=== PATIENT | female | born 1985 | race African-American/Black ===

== ENCOUNTER 2024-08-21 13:27 | Emergency (ER) | payer OTHER ==
--- NOTE | 2024-08-21 15:03 | RAD REPORT ---
EXAMINATION: ONE VIEW CHEST XR CLINICAL INDICATION: weakness TECHNIQUE: Frontal chest projection is submitted. Examination is limited by patient positioning and t echnique. COMPARISON: 01/21/2024 FINDINGS: The lungs are well inflated and clear. The heart is normal in size. No displaced fractures identified . IMPRESSION: No acute intrathoracic abnormalities.
[2024-08-21 15:13] LABS: Absolute Basophils 0.1 K/uL (0-0.5); Absolute Eosinophils 0.2 K/uL (0-0.5); Absolute Monocytes 0.3 K/uL (0.1-1.3); Absolute Neutrophil 3.2 K/uL (1.8-8.0); Basophils % 1.2 % (0-1.3); Eosinophils % 3.9 % (0-4.4); Hematocrit 32.3 % (36.0-45.0); Hemoglobin 10.8 g/dL (12.0-15.0); Lymphocytes % 35.4 % (15.3-44.8); MCH 29.4 pg (27.0-35.0); MCHC 33.5 g/dL (32.0-36.0); MCV 87.6 fL (80-100); MPV 7.3 fL (7.6-11.3); Monocytes % 4.7 % (3.3-12.3); Neutrophils % 54.8 % (41.7-73.7); PT Prothrombin Time 12.5 SECONDS (9.4-12.5); Platelets 247 thou/uL (152-406); Protime INR 1.12; RBC Red Blood Cell Count 3.68 M/uL (3.86-4.86); Red Cell Distribution Width 13.8 % (12.1-15.2)
[2024-08-21 15:36] LABS: ALT/SGPT 26 U/L (13-56); Albumin 3.5 g/dL (3.4-5.0); Albumin/Globulin Ratio 0.9 (1.1-1.8); Alkaline Phosphatase 56 U/L (45-117); Anion Gap 7.7 mEq/L (5.0-15.0); BUN Blood Urea Nitrogen 7 mg/dL (7-18); Bicarbonate 29 mEq/L (21-32); Bilirubin Total 0.3 mg/dL (0.2-1.0); Globulin 3.7 g/dL (2.3-3.5); Glomerular Filtration Rate 93 ml/min (=/>90); Glucose Level 113 mg/dL (74-106); Protein, Total 7.2 g/dL (6.4-8.2); Sodium Level 139 mEq/L (136-145); T4,Total 6.6 ug/dL (4.8-13.9); Troponin High Sensitivity 3.4 pg/mL (<58.9)
[2024-08-21 15:38] LABS: AST/SGOT 20 U/L (15-37); Bilirubin Direct < 0.2 mg/dL (0-0.2); Bilirubin Indirect, Calculated 0.1 mg/dL (0.2-0.8); Magnesium 1.3 mg/dL (1.6-2.4); Potassium 3.7 mEq/L (3.5-5.1)
[2024-08-21 16:04] LABS: Specific Gravity 1.022 (1.005-1.030)
--- NOTE | 2024-08-21 16:46 | RAD REPORT ---
EXAM: CT brain without contrast HISTORY: DIZZINESS COMPARISON: None TECHNIQUE: Multiple contiguous axial images were obtained and a CT of the brain without contrast. Sag ittal and coronal reformats were performed. One or more of the following dose reduction techniques were used: Automated exposure control, adjust ment of the mA and/or kV according to patient size, and/or iterative reconstruction. FINDINGS: No evidence of hydrocephalus, intracranial hemorrhage, or extra-axial fluid collection. The brain is normal in morphology. No evidence of midline shift or areas of brain edema. The calvarium is intact. The visualized paranasal sinuses and mastoid air cells are essentially clear . IMPRESSION: No evidence of acute intracranial abnormality. EXAM: CT of the cervical spine without contrast HISTORY: Neck dustin, injury [facility] Y DIZZINESS Bed Name: [id number] COMPARISON: None TECHNIQUE: Multiple contiguous axial images were obtained in a CT of the cervical spine without contr ast. Sagittal and coronal reformats were performed. FINDINGS: The vertebral bodies demonstrate normal height and alignment. No evidence of acute fracture or subluxation.. Moderate lower cervical degenerative changes. No prevertebral soft tissue swelling is seen. The posterior facets are well aligned. Normal alignment of the skull base with the cervical spine is seen. The lung apices are unremarkable. IMPRESSION: No evidence of acute osseous abnormality of the cervical spine.
--- NOTE | 2024-08-21 16:47 | RAD REPORT ---
EXAMINATION: CT LUMBAR SPINE WITHOUT CONTRAST CLINICAL INDICATION: Female, 39 years old. PAIN TECHNIQUE: Axial CT images were obtained through the lumbar spine in soft tissue and bone windows wit hout intravenous contrast. Coronal and Sagittal reformatted images were created from the data set. One or more of the following dose reduction techniques were used: Automated exposure control, adjustm ent of the mA and/ or kV according to patient size, and/or iterative reconstruction. Unless otherwise specified, incidental findings do not require dedicated imaging follow-up. COMPARISON: No prior exam. FINDINGS: For purposes of this dictation, it is assumed that there are 5 non rib-bearing lumbar type vertebrae, and the most caudal fully segmented lumbar vertebra is labeled L5. ALIGNMENT: The lumbar spine demonstrates normal alignment without scoliosis or spondylolisthesis. BONES: No significant soft tissue abnormalities. No aggressive osseous lesions. DISCS: Mild posterior disc bulging lower lumbar spine. LEVELS: No significant spinal canal or neural foraminal stenosis. No visualized abnormality within th e spinal canal. SOFT TISSUE: No soft tissue abnormalities. IMPRESSION: No acute lumbar spine abnormalities. Mild lower lumbar spondylosis.
[2024-08-21] MEDS ORDERED: MAGNESIUM SULFATE 1 gm IVPB 1 GM/100 ML BAG IV ONE (17:02)
--- NOTE | 2024-08-21 17:33 | EDPHYS ---
Physician Documentation [facility] Name: Kelin Geronimo Age: 39 yrs Sex: Female : 1985 Arrival Date: 08/21/2024 Time: 13:27 Bed 8 Private MD: ED Physician Serjio Britt HPI: 08/21 14:00 This 39 yrs old Black Female presents to ER via Ambulatory with complaints of Tremor, cp Dizziness, General Weakness. 14:00 The patient's problem is reported as weakness, that is generalized, intermittent cp tremors for past couple years that have been persistent at night for last 2 days. 14:00 Associated signs and symptoms: Pertinent positives: headache, neck and low back pain, cp Pertinent negatives: abdominal pain, chest pain. Patient's baseline: Neuro: alert and fully oriented, Motor: no deficits, Ambulation: walks without assistance, Speech: normal. TENTERER: 17:47 LMP N/A - , Not ap3 Historical: - Allergies: 13:46 Codeine; cm10 13:46 SULFA SULFONAMIDE ANTIBIOTICS; cm10 - PMHx: 13:46 Anemia; Hypertensive disorder; Thyroid problem; cm10 - PSHx: 13:46 section; cm10 - Immunization history:: Adult Immunizations up to date. - Infectious Disease History:: Denies. - Social history:: Smoking status: Patient denies any tobacco usage or history of. ROS: 14:05 Constitutional: Negative for body aches, chills, fever, poor PO intake, cp 14:05 Cardiovascular: Negative for chest pain, edema, palpitations, cp 14:05 Eyes: Negative for injury, pain, redness, and discharge, cp 14:05 ENT: Negative for drainage from ear(s), ear pain, sore throat, difficulty swallowing, difficulty handling secretions, 14:05 Neck: Positive for pain at rest, 14:05 Respiratory: Positive for shortness of breath, Negative for cough, wheezing, 14:05 Abdomen/GI: Negative for abdominal pain, vomiting, diarrhea, constipation, 14:05 Back: Positive for pain at rest, 14:05 Neuro: Positive for dizziness, tremor, weakness, Negative for altered mental status, numbness, syncope, 14:05 : Negative for urinary symptoms, cp 14:05 All other systems are negative, Exam: 14:10 Constitutional: The patient appears in no acute distress, alert, awake, cp non-diaphoretic, non-toxic, well developed, well nourished, 14:10 Head/Face: Normocephalic, atraumatic. cp 14:10 Eyes: Periorbital structures: appear normal, Pupils: equal, round, and reactive to light and accomodation, Extraocular movements: intact throughout, Conjunctiva: normal, no exudate, no injection, Sclera: no appreciated abnormality, Lids and lashes: appear normal, bilaterally, 14:10 ENT: External ear(s): are unremarkable, Nose: is normal, Mouth: Lips: moist, Oral mucosa: pink and intact, moist, Posterior pharynx: is normal, airway is patent, no erythema, no exudate, 14:10 Neck: ROM/movement: pain, that is mild, with flexion, limited range of motion, is not appreciated, nuchal rigidity, is not appreciated, 14:10 Chest/axilla: Inspection: normal, 14:10 Cardiovascular: Rate: normal, Rhythm: regular, Edema: is not appreciated, JVD: is not appreciated, 14:10 Respiratory: the patient does not display signs of respiratory distress, Respirations: normal, no use of accessory muscles, no retractions, labored breathing, is not present, Breath sounds: are clear throughout, no decreased breath sounds, no stridor, no wheezing, 14:10 Abdomen/GI: Inspection: abdomen appears normal, Palpation: abdomen is soft and non-tender, in all quadrants, 14:10 Back: pain, that is mild, of the lumbar area, ROM is normal, 14:10 Skin: no rash present. 14:10 Neuro: Orientation: to person, place \T\ time. Mentation: is normal, Cerebellar function: Romberg testing is negative, Motor: moves all fours, strength is normal, Sensation: is normal, Gait: is steady, 14:52 ECG was reviewed by the Attending Physician. cp Vital Signs: 13:45 BP 152 / 107; Pulse 98; Resp 18; Temp 99.3(O); Pulse Ox 100% on R/A; Weight 99.79 kg; cm10 Height 5 ft. 9 in. ; Pain 4/10; 15:00 BP 148 / 97; Pulse 90; Resp 16; Pulse Ox 99% ; ko1 13:45 Body Mass Index 32.49 (99.79 kg, 175.26 cm) cm10 13:45 Pain Scale: Adult cm10 MDM: 13:57 Patient medically screened. cp 14:00 Differential diagnosis: metabolic disorder, drug effects, electrolyte abnormality. cp 17:32 Data reviewed: vital signs, nurses notes, lab test result(s), EKG, radiologic studies, cp CT scan, and as a result, I will discharge patient. 17:33 Counseling: I had a detailed discussion with the patient and/or guardian regarding the cp historical points, exam findings, and any diagnostic results supporting the discharge/admit diagnosis, lab results, radiology results, the need for outpatient follow up, a family practitioner, a neurologist, to return to the emergency department if symptoms worsen or persist or if there are any questions or concerns that arise at home. 08/21 13:58 Order name: Basic Metabolic Panel; Complete Time: 16:49 cp 08/21 16:49 Interpretation: Normal except: GLUC 113. cp 08/21 13:58 Order name: CBC with Diff; Complete Time: 15:24 cp 08/21 15:24 Interpretation: Normal except: RBC 3.68; HGB 10.8; HCT 32.3; MPV 7.3. cp 08/21 13:58 Order name: LFT's; Complete Time: 16:49 cp 08/21 17:06 Interpretation: Reviewed. cp 08/21 13:58 Order name: Magnesium; Complete Time: 16:49 cp 08/21 16:49 Interpretation: Reviewed. cp 08/21 13:58 Order name: PT-INR; Complete Time: 15:24 cp 08/21 13:58 Order name: Troponin HS; Complete Time: 16:49 cp 08/21 13:58 Order name: TSH; Complete Time: 16:49 cp 08/21 13:58 Order name: T3 Free; Complete Time: 16:49 cp 08/21 13:58 Order name: T4,Total; Complete Time: 16:49 cp 08/21 15:19 Order name: Test, Urine; Complete Time: 16:49 mb4 08/21 17:08 Interpretation: Reviewed. cp 08/21 15:41 Order name: T4 Free; Complete Time: 16:49 EDMS 08/21 13:58 Order name: XRAY Chest (1 view); Complete Time: 15:24 cp 08/21 14:51 Order name: CT Head C Spine; Complete Time: 16:49 cp 08/21 14:53 Order name: CT Lumbar Spine Wo Con; Complete Time: 16:49 cp 08/21 13:58 Order name: EKG; Complete Time: 13:58 cp 08/21 13:58 Order name: Cardiac monitoring; Complete Time: 14:43 cp 08/21 13:58 Order name: EKG - Nurse/Tech; Complete Time: 14:43 cp 08/21 13:58 Order name: IV Saline Lock; Complete Time: 15:00 cp 08/21 13:58 Order name: Labs collected and sent; Complete Time: 15:00 cp 08/21 13:58 Order name: O2 Per Protocol; Complete Time: 14:43 cp 08/21 13:58 Order name: O2 Sat Monitoring; Complete Time: 14:43 cp EC:52 Rate is 86 beats/min. Rhythm is regular. MS interval is normal. QRS interval is normal. cp QT interval is normal. T waves are Inverted in lead aVR. Interpreted by me. Reviewed by me. Administered Medications: 17:05 Drug: Magnesium Sulfate IVPB 1 grams IVPB once over 1 hrs Route: IVPB; Infused Over: 1 ko1 hrs; Site: left antecubital; 17:47 Follow up: IV Status: Completed infusion ap3 Disposition: 08/22 17:44 Chart complete. cp Disposition Summary: 08/21/24 17:33 Discharge Ordered Notes: Location: Home cp Problem: new cp Symptoms: have improved cp Condition: Stable cp Diagnosis - Anemia, unspecified cp - Hypomagnesemia cp - Weakness cp - Dizziness and giddiness cp Followup: cp - With: Rancho Muhammad MD - When: 1 week - Reason: Recheck today's complaints Discharge Instructions: - Discharge Summary Sheet cp - Anemia cp - Dizziness cp - Hypomagnesemia cp - Weakness cp Forms: - Medication Reconciliation Form cp - Antibiotic Education cp - Prescription Opioid Use cp - Patient Portal Instructions cp - Leadership Thank You Letter cp Prescriptions: - Ferrous Sulfate 325 mg (65 mg Iron) Oral tablet - take 1 tablet ORAL route every 12 hours; 60 tablet; Refills: 0, Product cp Selection Permitted Signatures: Dispatcher [employer] EDSerjio Antonio PA PA cp Mikki Parker RN RN ko1 Jennifer Yañez RN RN cm10 Ally Richardson RN ap3
--- NOTE | 2024-08-21 17:33 | ER ---
Nurse's Notes [facility] Name: Kelin Geronimo Age: 39 yrs Sex: Female : 1985 Arrival Date: 08/21/2024 Time: 13:27 Bed 8 Private MD: Diagnosis: Anemia, unspecified;Hypomagnesemia;Weakness;Dizziness and giddiness Presentation: 08/21 13:45 Chief complaint: Patient states: Temors that have been intermittent for the last few cm10 years and for 2 days the tremors in her legs have been constant. PT reports feeling weak. Pt also states having shortness of breath when laying down. Coronavirus screen: Client denies travel out of the [place] in the last 14 days. Ebola Screen: Patient denies travel to an Ebola-affected area in the 21 days before illness onset. No symptoms or risks identified at this time. Initial Sepsis Screen: Does the patient meet any 2 criteria? HR > 90 bpm. Does the patient have a suspected source of infection? No. Patient's initial sepsis screen is negative. Risk Assessment: Do you want to hurt yourself or someone else? Patient reports no desire to harm self or others. Onset of symptoms was August 21, 2024. 13:45 Method Of Arrival: Ambulatory cm10 13:45 Acuity: TERESA 3 cm10 Triage Assessment: 13:47 General: Appears in no apparent distress. comfortable, Behavior is calm, cooperative. cm10 Neuro: No deficits noted. Level of Consciousness is awake, alert, obeys commands, Oriented to person, place, time, situation, Appropriate for age. Respiratory: No deficits noted. Airway is patent Respiratory effort is even, unlabored, Respiratory pattern is regular, symmetrical. 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 - Infectious Disease History:: Denies. - Social history:: Smoking status: Patient denies any tobacco usage or history of. Screenin:00 [facility] ED Fall Risk Assessment (Adult) History of falling in the last 3 months, ko1 including since admission No falls in past 3 months (0 pts) Confusion or Disorientation No (0 pts) Intoxicated or Sedated No (0 pts) Impaired Gait No (0 pts) Mobility Assist Device Used No (0 pt) Altered Elimination No (0 pt) Score/Fall Risk Level 0 - 2 = Low Risk Oriented to surroundings, Maintained a safe environment, Educated pt \T\ family on fall prevention, incl call for assistance when getting out of bed, Assessed \T\ reinforced patient's understanding of fall precautions, Hourly rounding (assess needs \T\ fall precautionary measures) done. Abuse screen: Denies threats or abuse. Denies injuries from another. Nutritional screening: No deficits noted. Tuberculosis screening: No symptoms or risk factors identified. Assessment: 15:00 General: Appears in no apparent distress. Behavior is calm, cooperative, appropriate ko1 for age. Pain: Denies pain. Neuro: Reports dizziness, weakness. Cardiovascular: No deficits noted. Respiratory: No deficits noted. GI: No deficits noted. : No deficits noted. EENT: No deficits noted. Derm: No deficits noted. Musculoskeletal: No deficits noted. Vital Signs: 13:45 BP 152 / 107; Pulse 98; Resp 18; Temp 99.3(O); Pulse Ox 100% on R/A; Weight 99.79 kg; cm10 Height 5 ft. 9 in. ; Pain 4/10; 15:00 BP 148 / 97; Pulse 90; Resp 16; Pulse Ox 99% ; ko1 13:45 Body Mass Index 32.49 (99.79 kg, 175.26 cm) cm10 13:45 Pain Scale: Adult cm10 ED Course: 13:32 Patient arrived in ED. sj2 13:35 Serjio Bueno PA is PHCP. cp 13:35 Serjio Britt MD is Attending Physician. cp 13:46 Triage completed. cm10 13:47 Arm band placed on left wrist. Patient placed in waiting room. cm10 14:39 XRAY Chest (1 view) In Process Unspecified. EDMS 14:43 Mikki Parker, CYNDI is Primary Nurse. ko1 14:51 EKG done, by ED staff, reviewed by Serjio DE DIOS. mb9 15:00 Patient has correct armband on for positive identification. Allergy band placed. Bed in ko1 low position. Call light in reach. Side rails up X2. Provided Education on: call light. Client placed on continuous cardiac and pulse oximetry monitoring. NIBP monitoring applied. disability attorney on. Door closed. Noise minimized. Lights dimmed. Warm blanket given. Pillow given. 15:00 Basic Metabolic Panel Sent. ko1 15:00 No provider procedures requiring assistance completed. Inserted saline lock: 20 gauge ko1 in left antecubital area, using aseptic technique. Blood collected. Flushed with 10 mL NS. 15:01 TSH Sent. ko1 15: T3 Free Sent. ko1 15:01 T4,Total Sent. ko1 15: CBC with Diff Sent. ko1 15:01 LFT's Sent. ko1 15: Magnesium Sent. ko1 15:01 PT-INR Sent. ko1 15: Troponin HS Sent. ko1 15:53 Test, Urine Sent. mb9 16:29 CT Head C Spine In Process Unspecified. EDMS 16:29 CT Lumbar Spine Wo Con In Process Unspecified. EDMS 17:32 Rancho Muhammad MD is Referral Physician. cp 17:46 IV discontinued, intact, bleeding controlled, No redness/swelling at site. Pressure ap3 dressing applied. Administered Medications: 17:05 Drug: Magnesium Sulfate IVPB 1 grams IVPB once over 1 hrs Route: IVPB; Infused Over: 1 ko1 hrs; Site: left antecubital; 17:47 Follow up: IV Status: Completed infusion ap3 Medication: 15:00 VIS not applicable for this client. ko1 Outcome: 17:33 Discharge ordered by . cp 17:46 Discharged to home ambulatory, with family, ap3 17:46 Condition: good 17:46 Discharge instructions given to patient, family, Instructed on discharge instructions, follow up and referral plans. medication usage, Demonstrated understanding of instructions, follow-up care, medications, Prescriptions given X 1, 17:47 Patient left the ED. ap3 Signatures: Dispatcher [employer] EDNH Serjio Bueno PA PA cp Ally Richardson RN RN ap3 Mikki Parker, RN RN ko1 Sharmin Pendleton RN RN mb9 Jennifer Yañez RN RN cm10 Kami Ledesma
[2024-08-21 19:10] VITALS: TEMP 99.3
[2024-08-21 19:12] VITALS: BP 148/97; O2SAT 99
--- NOTE | 2024-08-24 12:00 | EKG ---
Test Date: 2024-08-21 Test Time: 14:47:47 Clerical Adjudicator: MB MEASUREMENT RESULTS: Intervals: Rate: 86 SC: 150 QRSD: 76 QT: 354 QTc: 423 [place]: P: 72 SC: 150 QRS: 84 T: 51 INTERPRETIVE STATEMENTS: Normal sinus rhythm Nonspecific T wave abnormality Abnormal ECG Compared to ECG 01/21/2024 09:32:51 T-wave abnormality now present Electronically Signed On 08-24-24 11:55:04 CDT by Jaren Cam
== END 2024-08-21 17:47 | disposition home or self-care (01) ==
LOC: ER 13:27
DX: D64.9 Anemia, unspecified (principal); E83.42 Hypomagnesemia; R42 Dizziness and giddiness; R51.9 Headache, unspecified; M54.2 Cervicalgia; M54.50 Low back pain, unspecified; E07.9 Disorder of thyroid, unspecified; I10 Essential (primary) hypertension
CPT/HCPCS: 96365; 93005; 85025; 80048; 36415; 83735; 81025; 85610; 80076; 84436; 84443; 84484; 84481; 84439; 72131; 70450; 72125; 71045; 99285; J3475

== ENCOUNTER 2024-12-04 12:59 | Emergency (ER) | payer OTHER ==
--- NOTE | 2024-12-04 14:10 | RAD REPORT ---
EXAM: Chest Single View HISTORY: CHEST PAIN COMPARISON: 08/21/2024 FINDINGS: LUNGS/PLEURA: The lungs are clear. No pleural effusions or pneumothorax. No pulmonary edema. MEDIASTINUM: The mediastinal silhouette is within normal limits. CARDIAC: The cardiac silhouette is within normal limits. UPPER ABDOMEN: No significant abnormality. BONES: No acute abnormality. LINES/TUBES/OTHER: N/A IMPRESSION: No evidence of acute cardiopulmonary disease.
[2024-12-04 14:30] LABS: Specific Gravity 1.029 (1.005-1.030)
[2024-12-04] MEDS ORDERED: MECLIZINE HCL 12.5 MG TAB ONE (14:31)
[2024-12-04 14:34] LABS: Specific Gravity 1.029 (1.005-1.030); Sqamous Epithelial <5 /HPF (None Seen); Urine Bacteria None Seen /HPF (<20); Urine Bilirubin NEGATIVE (Negative); Urine Blood Negative (Negative); Urine Clarity Clear (Clear); Urine Color Light-Yellow (Yellow); Urine Culture Reflex Order NOT NEEDED; Urine Glucose NEGATIVE (Negative); Urine Ketones NEGATIVE (Negative); Urine Micro Reflex YN NO BILL MICROSCOPIC; Urine Mucus Slight /HPF (None Seen); Urine Nitrite NEGATIVE (Negative); Urine Protein TRACE (Negative); Urine RBC <5 /HPF (None Seen); Urine Urobilinogen Normal (Normal); Urine WBC <5 /HPF (<5); Urine pH 6.5 (5.0-7.0)
[2024-12-04 14:35] LABS: Absolute Eosinophils 0.2 K/uL (0-0.5); Absolute Lymphocytes (CBC) 2.1 K/uL (0.7-4.9); Absolute Monocytes 0.3 K/uL (0.1-1.3); Basophils % 0.6 % (0-1.3); Eosinophils % 3.3 % (0-4.4); Hematocrit 34.2 % (36.0-45.0); Lymphocytes % 37.7 % (15.3-44.8); MCH 30.2 pg (27.0-35.0); MCV 86.1 fL (80-100); MPV 7.6 fL (7.6-11.3); Monocytes % 5.4 % (3.3-12.3); Platelets 278 thou/uL (152-406); RBC Red Blood Cell Count 3.97 M/uL (3.86-4.86); Red Cell Distribution Width 13.2 % (12.1-15.2)
[2024-12-04 14:45] LABS: PT Prothrombin Time 12.9 SECONDS (9.4-12.5); Protime INR 1.23
[2024-12-04 15:05] LABS: ALT/SGPT 32 U/L (13-56); AST/SGOT 26 U/L (15-37); Albumin 3.7 g/dL (3.4-5.0); Albumin/Globulin Ratio 0.9 (1.1-1.8); Alkaline Phosphatase 66 U/L (45-117); Anion Gap 9.4 mEq/L (5.0-15.0); BUN Blood Urea Nitrogen 13 mg/dL (7-18); Bicarbonate 27 mEq/L (21-32); Bilirubin Total 0.4 mg/dL (0.2-1.0); Glomerular Filtration Rate 73 ml/min (=/>90); Glucose Level 106 mg/dL (74-106); Magnesium 1.8 mg/dL (1.6-2.4); NT PRO-BNP 6 pg/mL (<125); Potassium 3.4 mEq/L (3.5-5.1); Protein, Total 7.7 g/dL (6.4-8.2); Sodium Level 138 mEq/L (136-145); Troponin High Sensitivity 3.4 pg/mL (<58.9)
[2024-12-04 15:07] LABS: Bilirubin Direct < 0.2 mg/dL (0-0.2); Bilirubin Indirect, Calculated 0.2 mg/dL (0.2-0.8)
[2024-12-04] MEDS ORDERED: POTASSIUM 25 MEQ EFFERV TAB ONE (15:14)
--- NOTE | 2024-12-04 15:46 | EDPHYS ---
Physician Documentation [facility] Name: Kelin Geronimo Age: 39 yrs Sex: Female : 1985 Arrival Date: 12/04/2024 Time: 12:59 Bed 10 Private MD: ED Physician Tony Wong HPI: 12/04 13:17 This 39 yrs old Black Female presents to ER via Ambulatory with complaints of Chest sb4 Tightness. 13:17 Patient reports intermittent dizziness x 2 weeks and left-sided chest tightness x 4 sb4 days. She states that she has had problems with dizziness in the past and does see a neurologist for chronic migraines but typically goes away after lying down. She denies any history of vertigo. States that she was recently diagnosed with type 2 diabetes and started on metformin. She is supposed to take amitriptyline for her migraines but is noncompliant with the medication because she states that it gives her a "tremor". 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 - Infectious Disease History:: Denies. - Social history:: Smoking status: Patient denies any tobacco usage or history of. ROS: 13:17 Constitutional: Negative for fever, chills, and weight loss, sb4 13:17 Cardiovascular: Positive for chest tightness, 13:17 Neuro: Positive for dizziness, 13:17 All other systems are negative, Exam: 13:18 Constitutional: This is a well developed, well nourished patient who is awake, alert, sb4 and in no acute distress. Head/Face: Normocephalic, atraumatic. Eyes: Extra-ocular motions intact. Periorbital areas with no swelling, redness, or edema. ENT: Mucous membranes moist. Cardiovascular: Regular rate and rhythm with a normal S1 and S2. Respiratory: No increased work of breathing, no retractions or nasal flaring. Skin: Warm, dry with normal turgor. Normal color with no rashes, no lesions, and no evidence of cellulitis. MS/ Extremity: Pulses equal, no cyanosis. Neurovascular intact. Full, normal range of motion. Neuro: Awake and alert, GCS 15, oriented to person, place, time, and situation. Motor strength 5/5 in all extremities. Sensory grossly intact. Vital Signs: 13:04 BP 129 / 87; Pulse 88; Resp 15; Temp 98.3; Pulse Ox 99% ; ko1 14:12 BP 113 / 81 Supine; Pulse 76; Resp 15; Pulse Ox 100% ; me1 14:13 BP 124 / 84 Sitting; Pulse 79; me1 14:14 BP 126 / 80 Standing; Pulse 89; me1 15:00 BP 113 / 81; Pulse 75; Resp 14; Pulse Ox 100% ; me1 15:52 BP 114 / 70; Pulse 74; Resp 20; Temp 98.1; Pulse Ox 98% ; me1 MDM: 13:07 Medical Screening Exam initiated sb4 13:19 Differential diagnosis: dehydration, hypomagnesemia, hyperglycemia, hypokalemia, sb4 hypothyroidism, anemia. 15:45 Data reviewed: vital signs, nurses notes, lab test result(s), EKG, radiologic studies, sb4 and as a result, I will discharge patient. Counseling: I had a detailed discussion with the patient and/or guardian regarding the historical points, exam findings, and any diagnostic results supporting the discharge/admit diagnosis, lab results, radiology results, the need for outpatient follow up, a neurologist, to return to the emergency department if symptoms worsen or persist or if there are any questions or concerns that arise at home. 12/04 13:16 Order name: Basic Metabolic Panel; Complete Time: 15: sb4 12/04 13:16 Order name: CBC with Diff; Complete Time: 14:40 sb4 12/04 13:16 Order name: LFT's; Complete Time: 15: sb4 12/04 13:16 Order name: Magnesium; Complete Time: 15: sb4 12/04 13:16 Order name: NT PRO-BNP; Complete Time: 15:07 sb4 12/04 13:16 Order name: PT-INR; Complete Time: 14:46 sb4 12/04 13:16 Order name: Troponin HS; Complete Time: 15:07 sb4 12/04 13:16 Order name: UAM; Complete Time: 14:40 sb4 12/04 13:16 Order name: Test, Urine; Complete Time: 14:40 sb4 12/04 13:17 Order name: TSH; Complete Time: 15:07 sb4 12/04 13:16 Order name: XRAY Chest (1 view); Complete Time: 14:14 sb4 12/04 13:16 Order name: Cardiac monitoring; Complete Time: 14:14 sb4 12/04 13:16 Order name: EKG - Nurse/Tech; Complete Time: 13:43 sb4 12/04 13:16 Order name: IV Saline Lock; Complete Time: 13:36 sb4 12/04 13:16 Order name: Labs collected and sent; Complete Time: 13:36 sb4 12/04 13:16 Order name: O2 Per Protocol; Complete Time: 13:36 sb4 12/04 13:16 Order name: O2 Sat Monitoring; Complete Time: 13:36 sb4 12/04 13:16 Order name: Orthostatics; Complete Time: 14:13 sb4 EC:49 Rate is 75 beats/min. Rhythm is regular, Normal Sinus Rhythm. CA interval is normal at sb4 154 msec. QRS interval is normal at 82 msec. QT interval is normal at 390 msec. No Q waves. T waves are Normal. No ST changes noted. Clinical impression: Normal ECG. Interpreted by me. Reviewed by me. Administered Medications: 14:33 Drug: Meclizine PO 25 mg PO once Route: PO; me1 15:32 Follow up: Response: No adverse reaction me1 15:17 Drug: Potassium PO Effervescent Tablet 25 mEq PO once; dissolve in 4 ounces of water or me1 juice Route: PO; 15:32 Follow up: Response: No adverse reaction me1 Disposition: 16:59 Co-signature as Attending Physician, Tony Wong MD I reviewed the patient's care rn provided by the Advanced Practice Provider and agree with the diagnosis and treatment plan. Disposition Summary: 12/04/24 15:45 Discharge Ordered Notes: Location: Home sb4 Problem: new sb4 Symptoms: have improved sb4 Condition: Stable sb4 Diagnosis - Dizziness and giddiness sb4 Followup: sb4 - With: Private Physician - When: 1 week - Reason: Recheck today's complaints, Re-evaluation by your physician Discharge Instructions: - Discharge Summary Sheet sb4 - Vertigo, [id number] sb4 - Dizziness, [id number] sb4 Forms: - Patient Portal Instructions sb4 - Leadership Thank You Letter sb4 - Work release form me1 Prescriptions: - Meclizine 25 mg Oral Tablet - take 1 tablet ORAL route every 8 hours As needed; 30 tablet; Refills: 0, sb4 Product Selection Permitted Signatures: Dispatcher [employer] EDMS Tony Wong MD MD rn Mikki Praker RN RN ko1 Magalie Valentin PA-C [place] sb4 Anisa Nolen RN RN me1 Corrections: (The following items were deleted from the chart) 13:16 13:16 BASIC METABOLIC PANEL+C.LAB.BRZ ordered. EDMS EDMS 13:16 13:16 CBC+H.LAB.BRZ ordered. EDMS EDMS 13:16 13:16 HEPATIC FUNCTION+C.LAB.BRZ ordered. EDMS EDMS 13:16 13:16 MAGNESIUM+C.LAB.BRZ ordered. EDMS EDMS 13:16 13:16 PROBNP+C.LAB.BRZ ordered. EDMS EDMS 13:16 13:16 PROTIME (+INR)+COAG.LAB.BRZ ordered. EDMS EDMS 13:16 13:16 Troponin High Sensitivity+C.LAB.BRZ ordered. EDMS EDMS 13:16 13:16 Urinalysis W/Microscopic+U.LAB.BRZ ordered. EDMS EDMS 13:16 13:16 Test, Urine+UC.LAB.BRZ ordered. EDMS EDMS 13:16 13:16 Chest Single View+RAD.RAD.BRZ ordered. EDMS EDMS
--- NOTE | 2024-12-04 15:46 | ER ---
Nurse's Notes [facility] Name: Kelin Geronimo Age: 39 yrs Sex: Female : 1985 Arrival Date: 12/04/2024 Time: 12:59 Bed 10 Private MD: Diagnosis: Dizziness and giddiness Presentation: 12/04 13:04 Chief complaint: Patient states: chest tightness since Saturday in upper left chest area. ko1 Coronavirus screen: At this time, the client does not indicate any symptoms associated with coronavirus-19. Ebola Screen: No symptoms or risks identified at this time. Initial Sepsis Screen: Does the patient meet any 2 criteria? No. Patient's initial sepsis screen is negative. Does the patient have a suspected source of infection? No. Patient's initial sepsis screen is negative. Risk Assessment: Do you want to hurt yourself or someone else? Patient reports no desire to harm self or others. Onset of symptoms is unknown. 13:04 Method Of Arrival: Ambulatory ko1 13:04 Acuity: TERESA 3 ko1 Triage Assessment: 13:07 General: Appears in no apparent distress. Behavior is calm, cooperative, appropriate ko1 for age. Pain: Complains of pain in anterior aspect of left upper chest. Cardiovascular: Reports chest pain. 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 - Infectious Disease History:: Denies. - Social history:: Smoking status: Patient denies any tobacco usage or history of. Screenin:30 [facility] ED Fall Risk Assessment (Adult) History of falling in the last 3 months, me1 including since admission No falls in past 3 months (0 pts) Confusion or Disorientation No (0 pts) Intoxicated or Sedated No (0 pts) Impaired Gait No (0 pts) Mobility Assist Device Used No (0 pt) Altered Elimination No (0 pt) Score/Fall Risk Level 0 - 2 = Low Risk Maintained a safe environment, Provided non-skid footwear, Hourly rounding (assess needs \T\ fall precautionary measures) done. Abuse screen: Denies threats or abuse. Nutritional screening: No deficits noted. Tuberculosis screening: No symptoms or risk factors identified. Assessment: 13:30 General: Appears in no apparent distress. well groomed, well developed, well nourished, me1 Behavior is calm, cooperative, appropriate for age, Reports c/o left chest tightness that radiates down her left arm. Only gets relief with rest. Denies SOB. Denies n/v. Pain: Complains of pain in chest and anterior aspect of left upper chest Pain radiates to left arm Pain currently is 6 out of 10 on a pain scale. Quality of pain is described as tight Pain began Saturday Is continuous, Alleviated by rest. Neuro: Level of Consciousness is awake, alert, obeys commands, Oriented to person, place, time, situation, Appropriate for age. Cardiovascular: Reports chest pain, Patient's skin is warm and dry. Respiratory: Airway is patent Respiratory effort is even, unlabored, Respiratory pattern is regular, symmetrical. GI: No signs and/or symptoms were reported involving the gastrointestinal system. : No signs and/or symptoms were reported regarding the genitourinary system. EENT: No signs and/or symptoms were reported regarding the EENT system. Derm: Skin is intact, is healthy with good turgor, Skin is pink, warm \T\ dry. Musculoskeletal: No signs and/or symptoms reported regarding the musculoskeletal system. Vital Signs: 13:04 BP 129 / 87; Pulse 88; Resp 15; Temp 98.3; Pulse Ox 99% ; ko1 14:12 BP 113 / 81 Supine; Pulse 76; Resp 15; Pulse Ox 100% ; me1 14:13 BP 124 / 84 Sitting; Pulse 79; me1 14:14 BP 126 / 80 Standing; Pulse 89; me1 15:00 BP 113 / 81; Pulse 75; Resp 14; Pulse Ox 100% ; me1 15:52 BP 114 / 70; Pulse 74; Resp 20; Temp 98.1; Pulse Ox 98% ; me1 ED Course: 13:03 Patient arrived in ED. ra3 13:03 Magalie Valentin PA-C [facility]. sb4 13:03 Tony Wong MD is Attending Physician. sb4 13:07 Triage completed. ko1 13:07 Arm band placed on right wrist. Patient placed in an exam room, on a stretcher, on ko1 shelter monitor, on pulse oximetry, Patient notified of wait time. 13:29 Anisa Nolen, RN is Primary Nurse. me1 13:30 Patient has correct armband on for positive identification. Bed in low position. Call me1 light in reach. Side rails up X2. Provided Education on: POC. Verbalized understanding.. Client placed on continuous cardiac and pulse oximetry monitoring. NIBP monitoring applied. personnel monitor on. Pulse ox on. NIBP on. 13:30 No provider procedures requiring assistance completed. Patient maintains SpO2 me1 saturation greater than 95% on room air. 13:43 EKG done, by ED staff, reviewed by Magalie Valentin PA-C. me1 13:49 XRAY Chest (1 view) In Process Unspecified. EDMS 14:14 Test, Urine Sent. me1 14:14 UAM Sent. me1 14:14 Basic Metabolic Panel Sent. me1 14:14 CBC with Diff Sent. me1 14:14 LFT's Sent. me1 14:14 Magnesium Sent. me1 14:14 NT PRO-BNP Sent. me1 14:14 PT-INR Sent. me1 14:14 Troponin HS Sent. me1 14:14 TSH Sent. me1 14:14 Initial lab(s) drawn, by me, sent to lab. Urine collected: clean catch specimen, clear, me1 fercho colored. Inserted saline lock: 22 gauge in right antecubital area, using aseptic technique. 15:54 IV discontinued, intact, bleeding controlled, No redness/swelling at site. Pressure me1 dressing applied. Administered Medications: 14:33 Drug: Meclizine PO 25 mg PO once Route: PO; me1 15:32 Follow up: Response: No adverse reaction me1 15:17 Drug: Potassium PO Effervescent Tablet 25 mEq PO once; dissolve in 4 ounces of water or me1 juice Route: PO; 15:32 Follow up: Response: No adverse reaction me1 Medication: 13:30 VIS not applicable for this client. me1 Outcome: 15:45 Discharge ordered by . sb4 15:54 Discharged to home ambulatory, me1 15:54 Condition: stable 15:54 Discharge instructions given to patient, Instructed on discharge instructions, follow up and referral plans. medication usage, Demonstrated understanding of instructions, follow-up care, medications, Prescriptions given X 1, 15:54 Patient left the ED. me1 Signatures: Dispatcher [employer] EDMikki Merida RN RN ko1 Magalie Valentin PA-C PA-C sb4 Anisa Nolen RN RN me1 Angely Diaz ra3 Corrections: (The following items were deleted from the chart) 13:30 13:04 Chief complaint: Patient states: chest tightness since Saturday in upper left chest me1 area ko1 14:15 14:12 BP 113 / 81 Supine; Pulse 76bpm; me1 me1
[2024-12-04 16:04] VITALS: BP 114/70; TEMP 98.1; O2SAT 98
--- NOTE | 2024-12-10 13:13 | EKG ---
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
== END 2024-12-04 15:54 | disposition home or self-care (01) ==
LOC: ER 12:59
DX: R42 Dizziness and giddiness (principal); R07.89 Other chest pain; E11.9 Type 2 diabetes mellitus without complications; I10 Essential (primary) hypertension
CPT/HCPCS: 85025; 81001; 80048; 36415; 83735; 81025; 85610; 80076; 84443; 84484; 83880; 71045; 99285; J8597; 93005

== ENCOUNTER 2025-03-07 04:57 | Emergency (ER) | payer OTHER ==
[2025-03-07 06:08] LABS: Specific Gravity 1.025 (1.005-1.030)
[2025-03-07 06:10] LABS: Absolute Eosinophils 0.3 K/uL (0-0.5); Absolute Lymphocytes (CBC) 2.4 K/uL (0.7-4.9); Absolute Monocytes 0.3 K/uL (0.1-1.3); Absolute Neutrophil 2.9 K/uL (1.8-8.0); Basophils % 0.7 % (0-1.3); Eosinophils % 4.3 % (0-4.4); Hematocrit 31.4 % (36.0-45.0); Lymphocytes % 40.4 % (15.3-44.8); MCH 30.4 pg (27.0-35.0); MCHC 35.1 g/dL (32.0-36.0); MCV 86.6 fL (80-100); MPV 7.1 fL (7.6-11.3); Monocytes % 5.1 % (3.3-12.3); Neutrophils % 49.5 % (41.7-73.7); Nucleated Red Blood Cells % 0.1 % (0-0); Platelets 281 thou/uL (152-406); RBC Red Blood Cell Count 3.63 M/uL (3.86-4.86); Red Cell Distribution Width 14.4 % (12.1-15.2)
[2025-03-07 06:17] LABS: Barbiturates NEGATIVE (NEGATIVE); Benzodiazepines NEGATIVE (NEGATIVE); Cocaine NEGATIVE (NEGATIVE); METHAMPHETAM NEGATIVE (NEGATIVE); Methadone NEGATIVE (NEGATIVE); Opiates NEGATIVE (NEGATIVE); Phencyclidine NEGATIVE (NEGATIVE); THC Cannibis NEGATIVE (NEGATIVE)
[2025-03-07 06:18] LABS: PT Prothrombin Time 12.2 SECONDS (10-13.0); Protime INR 1.07
[2025-03-07 06:37] LABS: ALT/SGPT 27 U/L (13-56); AST/SGOT 16 U/L (15-37); Albumin 3.8 g/dL (3.4-5.0); Albumin/Globulin Ratio 1.2 (1.1-1.8); Alkaline Phosphatase 57 U/L (45-117); Anion Gap 8.3 mEq/L (5.0-15.0); BUN Blood Urea Nitrogen 15 mg/dL (7-18); Bicarbonate 26 mEq/L (21-32); Bilirubin Total 0.2 mg/dL (0.2-1.0); Globulin 3.2 g/dL (2.3-3.5); Glomerular Filtration Rate 81 ml/min (=/>90); Glucose Level 114 mg/dL (74-106); Magnesium 1.7 mg/dL (1.6-2.4); NT PRO-BNP 95 pg/mL (<125); Potassium 3.3 mEq/L (3.5-5.1); Sodium Level 139 mEq/L (136-145); Troponin High Sensitivity 3.2 pg/mL (<58.9)
[2025-03-07 06:38] LABS: Bilirubin Direct < 0.2 mg/dL (0-0.2)
--- NOTE | 2025-03-07 06:43 | RAD REPORT ---
EXAM: Chest Single View HISTORY: 39 years Female CHEST PAIN COMPARISON: None. FINDINGS: LUNGS/PLEURA: The lungs are clear. No pleural effusions or pneumothorax. No pulmonary edema. CARDIAC/MEDIASTINUM: The cardiac silhouette is within normal limits. UPPER ABDOMEN: No significant abnormality. BONES: No acute abnormality. LINES/TUBES/OTHER: N/A IMPRESSION: No evidence of acute cardiopulmonary disease.
[2025-03-07] MEDS ORDERED: ASPIRIN 81 MG CHEWABLE TABLET ONE (07:26)
--- NOTE | 2025-03-07 07:27 | ER ---
Nurse's Notes [facility] Name: Kelin Nogueira Age: 39 yrs Sex: Female : 1985 Arrival Date: 03/07/2025 Time: 04:57 Bed 17 Private MD: Diagnosis: Chest pain, unspecified;Essential (primary) hypertension Presentation: 03/07 05:03 Chief complaint: Patient states: Chest pain for 3 days today is the worse. upper chest vc1 was in neck. Coronavirus screen: Client denies travel out of the [place] in the last 14 days. At this time, the client does not indicate any symptoms associated with coronavirus-19. Ebola Screen: Patient negative for fever greater than or equal to 101.5 degrees Fahrenheit, and additional compatible Ebola Virus Disease symptoms Patient denies exposure to infectious person. Patient denies travel to an Ebola-affected area in the 21 days before illness onset. No symptoms or risks identified at this time. Initial Sepsis Screen: Does the patient meet any 2 criteria? No. Patient's initial sepsis screen is negative. Does the patient have a suspected source of infection? No. Patient's initial sepsis screen is negative. Risk Assessment: Do you want to hurt yourself or someone else? Patient reports no desire to harm self or others. Onset of symptoms was March 04, 2025. Care prior to arrival: None. 05:03 Method Of Arrival: Ambulatory vc1 05:03 Acuity: TERESA 3 vc1 Triage Assessment: 05:03 General: Appears in no apparent distress. uncomfortable, obese, well groomed, well vc1 developed, Behavior is calm, cooperative, appropriate for age. Pain: Complains of pain in anterior aspect of right upper chest and anterior aspect of left upper chest Pain does not radiate. Pain currently is 8 out of 10 on a pain scale. Quality of pain is described as pressure. EENT: No deficits noted. No signs and/or symptoms were reported regarding the EENT system. Neuro: Level of Consciousness is awake, alert, obeys commands, Oriented to person, place, time, situation, Appropriate for age. Cardiovascular: Reports chest pain, nausea, Patient's skin is warm and dry. Rhythm is sinus rhythm. Respiratory: Airway is patent Respiratory effort is even, unlabored, Respiratory pattern is regular, symmetrical, Breath sounds are clear bilaterally. GI: Reports nausea. : No deficits noted. No signs and/or symptoms were reported regarding the genitourinary system. Derm: Skin is intact, is healthy with good turgor, Skin is dry, Skin is normal, Skin temperature is warm. Musculoskeletal: Circulation, motion, and sensation intact. Range of motion: intact in all extremities. 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 Flu vaccine is not up to date. - Infectious Disease History:: Denies. - Social history:: Smoking status: Patient denies any tobacco usage or history of. - Family history:: not pertinent. Screenin:03 [facility] ED Fall Risk Assessment (Adult) History of falling in the last 3 months, vc1 including since admission No falls in past 3 months (0 pts) Confusion or Disorientation No (0 pts) Intoxicated or Sedated No (0 pts) Impaired Gait No (0 pts) Mobility Assist Device Used No (0 pt) Altered Elimination No (0 pt) Score/Fall Risk Level 0 - 2 = Low Risk Oriented to surroundings, Maintained a safe environment, Educated pt \T\ family on fall prevention, incl call for assistance when getting out of bed, Hourly rounding (assess needs \T\ fall precautionary measures) done. Abuse screen: Denies threats or abuse. Nutritional screening: No deficits noted. Tuberculosis screening: No symptoms or risk factors identified. Assessment: 06:06 General: Appears in no apparent distress. comfortable, Behavior is calm, cooperative. lg3 Pain: Complains of pain in anterior aspect of left upper chest and anterior aspect of right upper chest Pain began 2-3 days ago. Pain: Pain currently is 7 out of 10 on a pain scale. Quality of pain is described as pressure, Is continuous. Pain: Pain does not radiate. Neuro: No deficits noted. Gaines Agitation-Sedation Scale (RASS): 0 - Alert and Calm Level of Consciousness is awake, alert, obeys commands, Oriented to person, place, time, situation. Cardiovascular: No deficits noted. Reports chest pain, Heart tones S1 S2 present Capillary refill < 3 seconds Clubbing of nail beds is absent JVD is absent Patient's skin is warm and dry. Rhythm is sinus rhythm. Respiratory: No deficits noted. Airway is patent Respiratory effort is even, unlabored, Respiratory pattern is regular, symmetrical. GI: No deficits noted. No signs and/or symptoms were reported involving the gastrointestinal system. Abdomen is round non-distended. : No signs and/or symptoms were reported regarding the genitourinary system. EENT: No deficits noted. No signs and/or symptoms were reported regarding the EENT system. Derm: No deficits noted. No signs and/or symptoms reported regarding the dermatologic system. Skin is intact, is healthy with good turgor, Skin is dry, Skin is normal, Skin temperature is warm. Musculoskeletal: No deficits noted. No signs and/or symptoms reported regarding the musculoskeletal system. Circulation, motion, and sensation intact. Range of motion: intact in all extremities. 07:35 Reassessment: Pt reports left sided CP and pain in neck/shoulder that is worse with hb movement, no apparent distress. Vital Signs: 05:03 Weight 98.88 kg; Height 5 ft. 9 in. ; Pain 8/10; vc1 05:05 BP 137 / 92; Pulse 72; Resp 16; Temp 99.1; Pulse Ox 98% ; vc1 07:32 BP 136 / 98 LA; Pulse 74; hb 07:32 BP 128 / 82 RA; Pulse 75; hb 05:03 Body Mass Index 32.19 (98.88 kg, 175.26 cm) vc1 05:03 Pain Scale: Adult vc1 ED Course: 04:59 Patient arrived in ED. [id number] 05:04 Triage completed. vc1 05:05 Arm band placed on right wrist. vc1 05:05 Patient has correct armband on for positive identification. Placed in gown. Bed in low vc1 position. Call light in reach. Provided Education on: plan of care. youth officer on. Pulse ox on. NIBP on. 05:30 Grabiel Mitchell MD is Attending Physician. sp4 05:38 Ally Borges RN is Primary Nurse. al5 05:43 XRAY Chest (1 view) In Process Unspecified. EDMS 05:46 Patient maintains SpO2 saturation greater than 95% on room air. vc1 06:06 Door closed. Noise minimized. Warm blanket given. Pillow given. Family accompanied lg3 patient. 06:06 Initial lab(s) drawn, by me, sent to lab. Urine collected: clean catch specimen, clear. lg3 Inserted saline lock: 20 gauge in right antecubital area, using aseptic technique. Blood collected. Flushed with 10 mL NS. 07:08 Attending Physician role handed off by Grabiel Mitchell MD cha 07:08 Serjio Britt MD is Attending Physician. [facility] 07:26 Magnus Jacob MD is Referral Physician. amy Administered Medications: 07:34 Drug: Aspirin PO Chewable Tablet 162 mg PO once Route: PO; hb Medication: 05:46 VIS not applicable for this client. vc1 Outcome: 07:26 Discharge ordered by . [facility] 08:13 Patient left the ED. Signatures: Dispatcher [employer] EDIL Serjio Britt MD MD cha Baxter, Heather RN Marcela Ramey RN RN lg3 Emelia Day6 Tarah Marroquni RN RN vc1 Grabiel Mitchell MD MD sp4 Ally Borges RN RN al5
--- NOTE | 2025-03-07 07:27 | EDPHYS ---
Physician Documentation [facility] Name: Kelin Nogueira Age: 39 yrs Sex: Female : 1985 Arrival Date: 03/07/2025 Time: 04:57 Bed 17 Private MD: MARLENI Physician Serjio Britt HPI: 03/07 05:31 This 39 yrs old Black Female presents to ER via Ambulatory with complaints of Chest sp4 Pain. 07:22 The patient or guardian reports chest pain that is located primarily in the substernal amy area, anterior chest wall, left. The pain does not radiate. Associated signs and symptoms: The patient has no apparent associated signs or symptoms. The chest pain is described as aching. Modifying factors: The symptoms are alleviated by remaining still, the symptoms are aggravated by movement, palpation of area, twisting torso. Severity of pain: At its worst the pain was mild moderate in the emergency department the pain is unchanged. The patient has experienced similar episodes in the past, a few times. 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 Flu vaccine is not up to date. - Infectious Disease History:: Denies. - Social history:: Smoking status: Patient denies any tobacco usage or history of. - Family history:: not pertinent. ROS: 07:22 Constitutional: Negative for fever, chills, and weight loss, Eyes: Negative for injury, amy pain, redness, and discharge, ENT: Negative for injury, pain, and discharge, Neck: Negative for injury, pain, and swelling, Cardiovascular: Negative for chest pain, palpitations, and edema, Respiratory: Negative for shortness of breath, cough, wheezing, and pleuritic chest pain, Abdomen/GI: Negative for abdominal pain, nausea, vomiting, diarrhea, and constipation, Back: Negative for injury and pain, : Negative for injury, bleeding, discharge, and swelling, MS/Extremity: Negative for injury and deformity, Skin: Negative for injury, rash, and discoloration, Neuro: Negative for headache, weakness, numbness, tingling, and seizure, Psych: Negative for depression, anxiety, suicide ideation, homicidal ideation, and hallucinations, Allergy/Immunology: Negative for hives, rash, and allergies, Endocrine: Negative for neck swelling, polydipsia, polyuria, polyphagia, and marked weight changes, Hematologic/Lymphatic: Negative for swollen nodes, abnormal bleeding, and unusual bruising, Exam: 07:22 Constitutional: This is a well developed, well nourished patient who is awake, alert, amy and in no acute distress. Head/Face: Normocephalic, atraumatic. Eyes: Pupils equal round and reactive to light, extra-ocular motions intact. Lids and lashes normal. Conjunctiva and sclera are non-icteric and not injected. Cornea within normal limits. Periorbital areas with no swelling, redness, or edema. ENT: Nares patent. No nasal discharge, no septal abnormalities noted. Tympanic membranes are normal and external auditory canals are clear. Oropharynx with no redness, swelling, or masses, exudates, or evidence of obstruction, uvula midline. Mucous membranes moist. Neck: Trachea midline, no thyromegaly or masses palpated, and no cervical lymphadenopathy. Supple, full range of motion without nuchal rigidity, or vertebral point tenderness. No Meningismus. Chest/axilla: Normal chest wall appearance and motion. Nontender with no deformity. No lesions are appreciated. Cardiovascular: Regular rate and rhythm with a normal S1 and S2. No gallops, murmurs, or rubs. Normal PMI, no JVD. No pulse deficits. Respiratory: Lungs have equal breath sounds bilaterally, clear to auscultation and percussion. No rales, rhonchi or wheezes noted. No increased work of breathing, no retractions or nasal flaring. Abdomen/GI: Soft, non-tender, with normal bowel sounds. No distension or tympany. No guarding or rebound. No evidence of tenderness throughout. Back: No spinal tenderness. No costovertebral tenderness. Full range of motion. Skin: Warm, dry with normal turgor. Normal color with no rashes, no lesions, and no evidence of cellulitis. MS/ Extremity: Pulses equal, no cyanosis. Neurovascular intact. Full, normal range of motion., bilateral aka Neuro: Awake and alert, GCS 15, oriented to person, place, time, and situation. Cranial nerves II-XII grossly intact. Motor strength 5/5 in all extremities. Sensory grossly intact. Cerebellar exam normal. Normal gait. Psych: Awake, alert, with orientation to person, place and time. Behavior, mood, and affect are within normal limits. 07:22 ECG was reviewed by the Attending Physician. Vital Signs: 05:03 Weight 98.88 kg; Height 5 ft. 9 in. ; Pain 8/10; vc1 05:05 BP 137 / 92; Pulse 72; Resp 16; Temp 99.1; Pulse Ox 98% ; vc1 07:32 BP 136 / 98 LA; Pulse 74; hb 07:32 BP 128 / 82 RA; Pulse 75; hb 05:03 Body Mass Index 32.19 (98.88 kg, 175.26 cm) vc1 05:03 Pain Scale: Adult vc1 MDM: 05:31 Medical Screening Exam initiated sp4 07:24 Differential diagnosis: abnormal EKG, acute myocardial infarction, acute pericarditis, amy anxiety, coronary artery disease chest wall pain, congestive heart failure Cholelithiasis costochondritis, esophagitis, gastritis, herpes zoster, hiatal hernia, pancreatitis, peptic ulcer disease, pericarditis, pneumonia, pulmonary embolus, stable angina, thoracic aortic disection, unstable angina. HEART Score: History: Slightly Suspicious (0), ECG: Non specific repolarization disturbance / LBTB / PM (1), Age: < or = 45 years (0), Risk Factors: > or = 3 Risk factors for atherosclerotic disease (2), [Hypertension] [DM] [+ Family HX] [Obesity] Troponin: < or = 1 x Normal Limit (0). AILEEN Risk Score: 1 - Three or more CAD risk factors, 1 - Recent [<24hrs] Severe Angina, TOTAL SCORE = 2. Data reviewed: vital signs, nurses notes, lab test result(s), EKG, radiologic studies, plain films. Consideration of Admission/Observation Escalation of care including admission/observation considered. I considered the following discharge prescriptions or medication management in the emergency department Medications were administered in the Emergency Department. See MAR. Independent interpretation of the following test(s) in the Emergency Department EKG: See my EKG interpretation above. Test considered but Not performed: Ultrasound no 2 d echo. 03/07 05:31 Order name: Basic Metabolic Panel; Complete Time: 07:19 sp4 03/07 05:31 Order name: CBC with Diff; Complete Time: 07:19 sp4 03/07 05:31 Order name: LFT's; Complete Time: 07:19 sp4 03/07 05:31 Order name: Magnesium; Complete Time: 07:19 sp4 03/07 05:31 Order name: NT PRO-BNP; Complete Time: 07:19 sp4 03/07 05:31 Order name: PT-INR; Complete Time: 07:19 sp4 03/07 05:31 Order name: Troponin HS; Complete Time: 07:19 sp4 03/07 05:31 Order name: TSH; Complete Time: 07:19 sp4 03/07 05:31 Order name: Test, Urine; Complete Time: 07:19 sp4 03/07 05:31 Order name: Urine Drug Screen; Complete Time: 07:19 sp4 03/07 06:40 Order name: T4 Free; Complete Time: 07:19 EDMS 03/07 05:31 Order name: XRAY Chest (1 view); Complete Time: 07:19 sp4 03/07 05:31 Order name: Cardiac monitoring; Complete Time: 06:14 sp4 03/07 05:31 Order name: EKG - Nurse/Tech; Complete Time: 06:14 sp4 03/07 05:31 Order name: IV Saline Lock; Complete Time: 06:14 sp4 03/07 05:31 Order name: Labs collected and sent; Complete Time: 06:14 sp4 03/07 05:31 Order name: O2 Per Protocol; Complete Time: 06:14 sp4 03/07 05:31 Order name: O2 Sat Monitoring; Complete Time: 06:15 sp4 03/07 07:22 Order name: Bilateral blood pressure; Complete Time: 07:34 amy EC:22 Rate is 63 beats/min. Rhythm is regular. QRS [place] is Normal. CO interval is normal. QRS amy interval is normal. QT interval is normal. No Q waves. T waves are Normal. No ST changes noted. Clinical impression: NSR w/ Non-specific ST/T Changes and No evidence of ischemia. Interpreted by me. Reviewed by me. Administered Medications: 07:34 Drug: Aspirin PO Chewable Tablet 162 mg PO once Route: PO; hb Disposition Summary: 03/07/25 07:26 Discharge Ordered Notes: Location: Home amy Problem: new amy Symptoms: have improved amy Condition: Stable amy Diagnosis - Chest pain, unspecified amy - Essential (primary) hypertension amy Followup: amy - With: Private Physician - When: 2 - 3 days - Reason: Recheck today's complaints, Continuance of care, Re-evaluation by your physician Followup: amy - With: Magnus Jacob MD - When: 2 - 3 days - Reason: Recheck today's complaints, Re-evaluation by your physician Discharge Instructions: - Discharge Summary Sheet amy - Nonspecific Chest Pain, Adult amy - Chest Wall Pain amy - Hypertension, Adult amy - Chest Wall Pain, [id number] amy - Nonspecific Chest Pain, Adult, [id number] amy - Hypertension, Adult, [id number] amy - How to Take Your Blood Pressure, [id number] amy - Aspirin and Your Heart amy - Managing Your Hypertension amy Forms: - Medication Reconciliation Form amy - Antibiotic Education amy - Prescription Opioid Use amy - Patient Portal Instructions amy - Leadership Thank You Letter may - Work release form hw Signatures: Dispatcher [employer] EDMS Serjio Britt MD MD cha Baxter, Heather, RN RN hb Calcote, Vanessa, RN RN vc1 Grabiel Mitchell MD MD sp4 Corrections: (The following items were deleted from the chart) 05:32 05:32 BASIC METABOLIC PANEL+C.LAB.BRZ ordered. EDMS EDMS 05:32 05:32 CBC+H.LAB.BRZ ordered. EDMS EDMS 05:32 05:32 HEPATIC FUNCTION+C.LAB.BRZ ordered. EDMS EDMS 05:32 05:32 MAGNESIUM+C.LAB.BRZ ordered. EDMS EDMS 05:32 05:32 PROBNP+C.LAB.BRZ ordered. EDMS EDMS 05:32 05:32 PROTIME (+INR)+COAG.LAB.BRZ ordered. EDMS EDMS 05:32 05:32 Troponin High Sensitivity+C.LAB.BRZ ordered. EDMS EDMS 05:32 05:32 Chest Single View+RAD.RAD.BRZ ordered. EDMS EDMS 05:32 05:32 THYROID STIMULAT HORMONE+C.LAB.BRZ ordered. EDMS EDMS 05:32 05:32 Test, Urine+UC.LAB.BRZ ordered. EDMS EDMS 05:32 05:32 URINE DRUG SCREEN+UC.LAB.BRZ ordered. EDMS EDMS
[2025-03-07 08:58] VITALS: TEMP 99.1; O2SAT 98
[2025-03-07 08:59] VITALS: BP 128/82
--- NOTE | 2025-03-10 12:49 | EKG ---
Test Date: 2025-03-07 Test Time: 05:15:11 Internal Communications Writer: [place] MEASUREMENT RESULTS: Intervals: Rate: 63 ME: 154 QRSD: 88 QT: 394 QTc: 403 [place]: P: 50 ME: 154 QRS: 41 T: 19 INTERPRETIVE STATEMENTS: Normal sinus rhythm Nonspecific T wave abnormality Abnormal ECG No previous ECG available for comparison Electronically Signed On 03-10-25 12:41:10 CDT by Jaren Cam
== END 2025-03-07 08:13 | disposition home or self-care (01) ==
LOC: ER 04:57
DX: R07.89 Other chest pain (principal); I10 Essential (primary) hypertension
CPT/HCPCS: 36415; 71045; 80048; 80076; 80307; 81025; 83735; 83880; 84439; 84443; 84484; 85025; 85610; 93005; 99284